=== PATIENT | female | born 1970 | race Caucasian/White ===

== ENCOUNTER 2018-12-14 07:51 | Observation (INO) | payer SELFPAY ==
--- NOTE | 2018-12-14 08:57 | CT ---
CT Brain WO Con: 12/14/2018 8:31 AM CLINICAL HISTORY: Headache, weakness of right upper extremity. COMPARISON: None. FINDINGS: Hemorrhage: None. Ventricular system: Normal in size and morphology for the patient's age. Cerebral parenchyma: Normal Midline shift: None. Mass: No mass effect. Calvarium: Normal. Visualized Paranasal sinuses: Clear. IMPRESSION: No acute intracranial abnormalities.
[2018-12-14 08:58] LABS: #Basophils 0.1 thou/uL (0.0-0.2); #Eosinphils 0.4 thou/uL (0.0-0.7); #Lymphocytes 2.3 thou/uL (1.20-3.40); #Monocytes 1.5 thou/uL (0.11-0.59); #Neutrophils 6.8 thou/uL (1.40-6.50); %Basophils 1.1 % (0.0-1.0); %Eosinophils 3.3 % (0.0-10.0); %Lymphocytes 20.6 % (21.0-51.0); %Monocytes 13.2 % (0.0-10.0); %Neutrophils 61.9 % (42.0-75.0); Hemoglobin 13.9 g/dL (12.0-16.0); Mean Corpuscular HGB CONC 32.1 g/dL (32.0-36.0); Mean Corpuscular Hemoglobin 28.5 pg (27.0-31.0); Mean Corpuscular Volume 88.9 fL (78.0-98.0); Mean Platelet Volume 7.9 fL (7.4-10.4); Platelet Count 272 thou/uL (130-400); RBC Distribution Width 13.2 % (11.5-14.5); Red Blood Cell (RBC) Count 4.88 mill/uL (4.20-5.40)
[2018-12-14 09:11] LABS: Amphetamine Not Detected (NotDetected); Barbiturates Screen Not Detected (NotDetected); Benzodiazepine Screen Not Detected (NotDetected); Cocaine Metabolite Screen Not Detected (NotDetected); Medtox Control Line Valid? VALID (VALID); Medtox Reader # READER 1; Methadone Not Detected (NotDetected); Methamphetamine Not Detected (NotDetected); Opiate Screen Not Detected (NotDetected); Oxycodone Screen Not Detected (NotDetected); Phencyclidine (PCP) Not Detected (NotDetected); THC/Cannabinoid Screen Not Detected (NotDetected); Tricyclic Screen Not Detected (NotDetected)
[2018-12-14 09:13] LABS: Acetaminophen Less than 6.0 mcg/mL (10.0-30.0); Alcohol Less than 10 mg/dL (Less than 10); Salicylate Less than 8.0 mg/dL (15.0-30.0)
[2018-12-14] MEDS ORDERED: Acetaminophen 500 MG TAB ONE (09:13)
[2018-12-14 09:14] LABS: ALT (SGPT) 34 U/L (8-55); AST (SGOT) 22 U/L (5-34); Alkaline Phosphatase 119 U/L (40-150); Anion Gap 11 mmol/L (10-20); BUN (Urea Nitrogen) 17 mg/dL (7.0-18.7); Bilirubin, Total 0.4 mg/dL (0.2-1.2); Calc. Creatinine Clearance 0 mL/min (70-130); Calcium 9.3 mg/dL (7.8-10.44); Carbon Dioxide 28 mmol/L (22-29); Chloride 105 mmol/L (98-107); Estimated GFR-MDRD 70; Globulin 3.3 g/dL (2.4-3.5); Glucose 95 mg/dL (70-105); Protein, Total 7.3 g/dL (6.0-8.3); Sodium 140 mmol/L (136-145)
--- NOTE | 2018-12-14 12:27 | PDOC.FPRHP ---
- History of Present Illness Chief Complaint: headache, tingling b/l feet History of Present Illness: This is a 48 yo F presenting to the ED for multiple complaints including headache, tingling b/l feet, and right sided weakness. The patient states that her feet feel like she is stepping on "pins and needles." She states that these symptoms started yesterday. She also states that they have been more swollen for about a week. She denies any recent trauma, injury, or travel. She denies ever having similar symptoms. She reports that the headache started around 10pm last night. Endorses lightheadedness since this morning as well. The patient denies any vision changes, hearing changes, NVD, slurred speech, chest pain, palpitations, fever, chills, or abdominal pain. The patient states that she is unable to walk due to the weakness on her right side. Of note, the patient was recently released from long term and has been staying at a [facility]. 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 From [place] - Review of Systems General: denies: fever/chills, weight/appetite/sleep changes, night sweats, fatigue Eyes: denies: eye pain, vision changes ENT: denies: nasal congestion, rhinorrhea Respiratory: denies: cough, congestion, shortness of breath Cardiovascular: denies: chest pain, palpitation, edema, paroxysmal nocturnal dyspnea Gastrointestinal: denies: nausea, vomiting, diarrhea, constipation, abdominal pain Genitourinary: denies: dysuria Skin: denies: rashes, lesions Musculoskeletal: reports: pain (bilateral feet), swelling Neurological: reports: numbness (right sided), weakness (right sided). denies: seizure - Vital signs BP: 123/84 HR: 87 RR: 18 Tmax: 98.6 Pox: 97% on RA Wt: 81.7kg - Physical Exam Constitutional: NAD, awake, alert and oriented, well developed HEENT: normocephalic and atraumatic, PERRLA, EOMI, no scleral icterus, grossly normal vision, grossly normal hearing, MMM Neck: supple, FROM, trachea midline Chest: no-tender to palpation, no lesions Heart: RRR, normal S1/S2, no murmurs/rubs/gallops, pulses present Lungs: CTAB, no respiratory distress, good air movement, no rales/rhonchi, no wheezing, no retractions Abdomen: soft, non-tender, bowel sounds present, no masses/distention Musculoskeletal: normal structure, normal tone Neurological: CN II-XII intact -Neurological: decreased right sided weakness - face, arm and leg; right sided weakness 0/5, left sided weakness 4/5 Skin: no rash/lesions, good turgor, capillary refill <2 seconds Psychiatric: normal mood and affect, good judgment and insight, intact recent and remote memory FMR H&P: Results - Labs Result Diagrams: 12/14/18 08:50 12/14/18 08:50 Lab results: WBC 11.0 thou/uL (4.8-10.8) H 12/14/18 08:50 Hgb 13.9 g/dL (12.0-16.0) 12/14/18 08:50 Hct 43.4 % (36.0-47.0) 12/14/18 08:50 MCV 88.9 fL (78.0-98.0) 12/14/18 08:50 Plt Count 272 thou/uL (130-400) 12/14/18 08:50 Neutrophils % 61.9 % (42.0-75.0) 12/14/18 08:50 Sodium 140 mmol/L (136-145) 12/14/18 08:50 Potassium 4.0 mmol/L (3.5-5.1) 12/14/18 08:50 Chloride 105 mmol/L (98-107) 12/14/18 08:50 Carbon Dioxide 28 mmol/L (22-29) 12/14/18 08:50 BUN 17 mg/dL (7.0-18.7) 12/14/18 08:50 Creatinine 0.87 mg/dL (0.6-1.1) 12/14/18 08:50 Glucose 95 mg/dL (70-105) 12/14/18 08:50 Calcium 9.3 mg/dL (7.8-10.44) 12/14/18 08:50 Total Bilirubin 0.4 mg/dL (0.2-1.2) 12/14/18 08:50 AST 22 U/L (5-34) 12/14/18 08:50 ALT 34 U/L (8-55) 12/14/18 08:50 Alkaline Phosphatase 119 U/L (40-150) 12/14/18 08:50 Serum Total Protein 7.3 g/dL (6.0-8.3) 12/14/18 08:50 Albumin 4.0 g/dL (3.5-5.0) 12/14/18 08:50 - Radiology Interpretation CT scan - head Status: report reviewed by me (no acute intracranial response) FMR H&P: A/P - Problem List (1) Neuropathy Current Visit: Yes Status: Acute Code(s): G62.9 - POLYNEUROPATHY, UNSPECIFIED (2) TIA (transient ischemic attack) Current Visit: Yes Status: Acute Code(s): G45.9 - TRANSIENT CEREBRAL ISCHEMIC ATTACK, UNSPECIFIED - Plan TIA vs stroke Patient with right sided weakness and neuropathy. CT brain normal. - Will order CTA head/neck - MRI pending - FSH, TSH, A1C pending - Can consider gabapentin for neuropathy like symptoms Leukocytosis - WBC 11 - Will monitor, patient afebrile, VSS Hx of drug abuse - pt denies current use - UDS neg Code: FULL GI ppx: none VTE ppx: lovenox DISPO: dc pending negative work up Case discussed with Dr. Cedillo FMR H&P: Upper Level - Pertinent history 48 yo female here for Headache starting yesterday. When she woke up this morning , she reports that she was having right sided weakness and numbness. Assoc difficulty walking due to right leg weakness, pins and needles in feet. No recent trauma or injury. Denies changes in vision, hearing, N/V/D, changes in speech. - Pertinent findings 145/88 HR: 78 SpO2: 100% on RA GEN: NAD, AAOx3 PULM: CTAB CARD: RRR, no m/g/r NEURO: decreased sensation on right face (upper and lower), UE and LE; 5/5 strength b/l on UE but decreased on right compared to left; pt unable to lift right leg Labs normal No acute intracranial abnormalities - Plan Date/Time: 12/14/18 1227 I, Robert Lopez DO, have evaluated this patient and agree with findings/plan as outlined by internal affairs investigator resident. Pertinent changes/additions are listed here. #neural deficits, TIA vs CVA vs complex migraines vs malingering -pt has odd acute history, nurses and other providers obtain a different history and physical exam -CT negative -CTA head/neck -will continue with workup including MRI, HA1c, lipids Addendum - Attending - Attending Attestation Date/Time: 12/14/18 1946 I personally evaluated the patient and discussed the management with Dr. Sterling. I agree with the History, Examination, Assessment and Plan documented above with any addition or exceptions noted below. The patient was seen this morning after coming to the er with a headache, feet tingling and right sided weakness. She states her headache began last night and she noticed right sided weakness this morning. She also complains of bilateral pins and needles sensation in her feet which make it difficult to walk. Nursing states pt has been able to get out of bed and walk to the restroom but pt has right sided weakness on exam. Will continue TIA/stroke workup with CTA, MRI brain, and additional labs. Pt is in agreement with this plan.
[2018-12-14] MEDS ORDERED: Ondansetron PF 4 MG/2 ML Vial IVP PRN (12:55)
[2018-12-14] MEDS ORDERED: Acetaminophen 650 MG Suppository PR PRN (12:55)
[2018-12-14] MEDS ORDERED: Ondansetron ODT 4 MG TAB PO PRN (12:55)
[2018-12-14 13:32] VITALS: BMI 29.7
--- NOTE | 2018-12-14 16:13 | MRI ---
MRI Brain WO Con: 12/14/2018 12:57 PM CLINICAL HISTORY: TIA. COMPARISON: Head CT, earlier same day FINDINGS: Extra axial spaces: Normal in size and morphology for the patient's age. Hemorrhage: None. Ventricular system: Normal in size and morphology for the patient's age. Basal cisterns: Normal. Cerebral parenchyma: Limited evaluation due to extensive patient motion. Underlying pathologic signal could be obscured. No acute territorial infarction. Midline shift: None. Cerebellum: Normal. Brainstem: Normal. Paranasal sinuses:Clear IMPRESSION:Limited exam due to patient motion. No definite acute infarction or mass effect.
--- NOTE | 2018-12-14 16:22 | CT ---
NONCONTRAST HEAD CT POST CONTRAST HEAD CT CT ANGIOGRAM OF THE HEAD AND NECK: 12/14/18 TECHNIQUE: Pre and postcontrast head CT is performed in the axial plane. CT angiogram of the head and neck are p erformed in the axial plane. Three dimensional reformatted images are submitted for interpretation. FINDINGS: NONCONTRAST HEAD CT: No hemorrhage, extra-axial hematoma or midline shift. Brain volume, age appropriate. No evidence of hydrocephalus. Intact calvarium. POSTCONTRAST HEAD CT: No pathologic enhancement of the brain parenchyma. The visualized orbits are unremarkable. Aerodigestive tract is patent. No mucosa abnormality. Midline fatty raphae of the tongue is preserved. Patient is edentulous. Epiglottis is normal caliber. Pre-ep iglottic fat is preserved. Symmetric attenuation of the parotid and submandibular glands. Symmetric attenuation of the sternocle idomastoid muscles. Nonspecific left soft tissue neck lymph nodes. Upper normal right level II lymph node measuring 0.9 x 1.5 cm. There is no prevertebral soft tissue swelling. No epidural hematoma. Cervical spine vertebral body he ight is maintained. No fracture. Moderate degenerative disc disease at C5-C6. Upper mediastinum demonstrates extensive enlarged prevascular, subcarinal and hilar lymph nodes, inco mpletely evaluated. CT ANGIOGRAM: Visualized aortic arch is unremarkable. RIGHT CAROTID: The right innominate artery has appropriate enhancement and luminal diameter. Right common carotid ar lui, carotid bifurcation and internal carotid artery have appropriate enhancement and luminal diamet er. There is mild tortuosity of the distal cervical internal carotid artery. LEFT CAROTID: The left carotid artery origin has appropriate enhancement and luminal diameter. Left common carotid artery, carotid bifurcation, and internal carotid artery have appropriate enhancement and luminal vipul meter. There is mild tortuosity of the distal cervical internal carotid artery. Both cervical vertebral arteries are patent throughout their course in the neck. Left vertebral arter y is slightly more dominant. Both subclavian arteries are unremarkable. CT ANGIOGRAM OF THE HEAD: There is symmetric enhancement and luminal diameter of the A1 and A2 segments. There is slight beaded appearance involving bilateral M1 segment. Proximal MCA branches are symmetric. POSTERIOR CIRCULATION: Both vertebral arteries supply a normal appearing basilar artery. Both P1 segments have appropriate e nhancement and luminal diameter. Limited evaluation of the PICA artery origins. IMPRESSION: 1. Beaded appearance involving both M1 segments. Correlate for fibromuscular dysplasia. 2. Extensive mediastinal lymphadenopathy, incompletely evaluated. Correlate clinically. Consider postcontrast chest, abdomen and pelvic CT if clinically warranted after thorough interrogation of th e patient's history. POS: [facility]
[2018-12-14] MEDS ORDERED: Iopamidol 370 76% 100 ML VIAL ONE (16:53)
[2018-12-14] MEDS: Acetaminophen 325 MG TAB PO PRN ×2 (17:29→21:53)
[2018-12-15 05:20] LABS: #Basophils 0.1 thou/uL (0.0-0.2); #Eosinphils 0.6 thou/uL (0.0-0.7); #Lymphocytes 1.9 thou/uL (1.20-3.40); #Monocytes 1.1 thou/uL (0.11-0.59); #Neutrophils 4.8 thou/uL (1.40-6.50); %Basophils 0.7 % (0.0-1.0); %Eosinophils 6.8 % (0.0-10.0); %Neutrophils 56.6 % (42.0-75.0); Hemoglobin 13.9 g/dL (12.0-16.0); Mean Corpuscular HGB CONC 31.8 g/dL (32.0-36.0); Mean Corpuscular Hemoglobin 28.5 pg (27.0-31.0); Mean Corpuscular Volume 89.6 fL (78.0-98.0); Mean Platelet Volume 8.4 fL (7.4-10.4); Platelet Count 261 thou/uL (130-400); RBC Distribution Width 13.2 % (11.5-14.5); Red Blood Cell (RBC) Count 4.89 mill/uL (4.20-5.40); White Blood Cell (WBC) Count 8.4 thou/uL (4.8-10.8)
[2018-12-15 05:39] LABS: Anion Gap 10 mmol/L (10-20); BUN (Urea Nitrogen) 14 mg/dL (7.0-18.7); Calc. Creatinine Clearance 121 mL/min (70-130); Calcium 9.4 mg/dL (7.8-10.44); Carbon Dioxide 27 mmol/L (22-29); Cardiac Risk 4.1 (Less than 4.5); Chloride 106 mmol/L (98-107); Cholesterol 233 mg/dl (< 200 Desired); Estimated GFR-MDRD 80; Glucose 93 mg/dL (70-105); HDL Cholesterol 57 mg/dL (>60 Neg Risk); LDL Cholesterol, Calculated 156 mg/dL; Potassium 4.9 mmol/L (3.5-5.1); Sodium 138 mmol/L (136-145); Triglycerides 99 mg/dL (Less than 150)
--- NOTE | 2018-12-15 07:05 | PDOC.FM ---
- Subjective Subjective: NAEO. Patient resting comfortably in bed. States right sided weakness has improved, arm > leg. She states she is still having difficulty walking due to right leg weakness but was able to ambulate to the bathroom with assistance. She endorses persistent headache that is somewhat relieved with medication. SHe was able to sleep most of the night. She states PT did not come by yesterday. Denies fever, chills, NVD, chest pain, or palpitations. - Objective Vital Signs & Weight: Vital Signs (12 hours) Temp Pulse Resp BP BP Pulse Ox 12/15/18 03:54 98.0 F 63 14 126/72 97 12/14/18 23:09 98.1 F 63 12 128/68 93 L Weight Weight 84.731 kg I&O: 12/14/18 12/15/18 12/16/18 06:59 06:59 06:59 Output Total 400 Balance -400 Result Diagrams: 12/15/18 05:02 12/15/18 05:02 Phys Exam - Physical Examination Constitutional: NAD HEENT: PERRLA, moist MMs, sclera anicteric Neck: full ROM Respiratory: no wheezing, no rales, no rhonchi, clear to auscultation bilateral Cardiovascular: RRR Gastrointestinal: soft, non-tender, no distention, positive bowel sounds Musculoskeletal: no edema Neurological: moves all 4 limbs 2/5 weakness on RLE, sensation decreased on right side face, arm, leg Psychiatric: normal affect, A&O x 3 Skin: no rash, normal turgor, cap refill <2 seconds Dx/Plan (1) Neuropathy Code(s): G62.9 - POLYNEUROPATHY, UNSPECIFIED Status: Acute (2) TIA (transient ischemic attack) Code(s): G45.9 - TRANSIENT CEREBRAL ISCHEMIC ATTACK, UNSPECIFIED Status: Acute (3) Migraine Code(s): G43.909 - MIGRAINE, UNSP, NOT INTRACTABLE, WITHOUT STATUS MIGRAINOSUS Status: Acute - Plan Plan: TIA vs complex migraine Patient with right sided weakness and neuropathy. CT brain normal. Patient states she has been under a lot of stress due to social issues. - CTA head/neck: beaded appearance in M1 segment, possible fibromuscular dysplasia, mediastinal lymphadenopathy; recommend following up outpatient with PCP - MRI: no mass effect, limited due to movement - FLP wnl, A1C wnl, B12/folate nml - Will start gabapentin for neuropathy like symptoms Leukocytosis - WBC 11 - Will monitor, patient afebrile, VSS Hx of drug abuse - pt denies current use - UDS neg Code: FULL GI ppx: none VTE ppx: lovenox DISPO: likely dc later today Addendum - Attending - Attending Attestation Date/Time: 12/15/18 [id number] I personally evaluated the patient and discussed the management with Dr. Sterling I agree with the History, Examination, Assessment and Plan documented above with any addition or exceptions noted below. Beaded vascular appearance and adenopathy noted. Concern Fibromuscular dysplasia and risk anuersyms. Patient denies fever ,chills weight loss, endorsing weight gain. No cervical, supraclavicular, axillary or inguinal adenopathy appreciated. Neuro exam no weakness demonstrated however patient with endorsement of ambulating difficulties. Procced with further generalized imaging for adenopathy and vascular study CTA . Encourage continued observation with increased activity.
[2018-12-15 07:13] LABS: Hemoglobin A1c 4.7 % (4.0-6.0)
[2018-12-15] MEDS: Gabapentin 100 MG CAP PO SCH (09:06)
[2018-12-15] MEDS: Acetaminophen 325 MG TAB PO PRN (09:06)
[2018-12-15] MEDS: Enoxaparin Sodium 40 MG/0.4 ML SYRINGE SC SCH (09:07)
--- NOTE | 2018-12-15 13:26 | CT ---
EXAM: CT Chest Abd Pelvis W Con PROVIDED CLINICAL HISTORY: Mediastinal lymphadenopathy COMPARISON: None FINDINGS: There are multiple enlarged mediastinal and hilar lymph nodes. Pretracheal lymph node image 17 series 2 measures about 1.9 cm in short axis. Right hilar lymph node measures about 2.2 cm in short axis (i mage 29 series 2). Enlarged paraesophageal lymph nodes are also seen just cranial to the diaphragmati c hiatus. No evidence for axillary lymph node enlargement. The heart, pericardium and great vessels appear unremarkable. The airway appears patent and of normal caliber. Nonspecific sub-4 mm nodular densities involving right lower lobe. No pleural fluid or pneu mothorax apparent. The liver, spleen, pancreas, kidneys and adrenal glands demonstrate an unremarkable CT appearance. No bowel dilatation, inflammatory fat stranding, free fluid or abdominal lymph node enlargement. 3.7 cm cystic lesion right hemipelvis probably adnexal in origin. The uterus is not visualized and pr esumed surgically absent. The osseous structures demonstrate no concerning osteoblastic or osteolytic lesions. IMPRESSION: 1. Bulky mediastinal and hilar lymph node enlargement. Neoplastic and granulomatous etiologies should be considered. No evidence for lymphadenopathy below the diaphragm. 2. 3.7 cm right adnexal cystic structure, nonspecific. Correlation with pelvic ultrasound recommended .
[2018-12-15] MEDS ORDERED: Iopamidol 370 76% 100 ML VIAL ONE (13:43)
[2018-12-16] MEDS: Acetaminophen 325 MG TAB PO PRN ×3 (00:50→11:24)
[2018-12-16] MEDS ORDERED: Cyclobenzaprine 10 MG TAB PO SCH (05:00)
--- NOTE | 2018-12-16 06:42 | PDOC.FM ---
- Subjective Subjective: Overnight, the patient complained of cramping in her bilateral legs, mostly in the thighs. SHe states this is due to her restless leg syndrome. States her right sided weakness is improving. Patient has been tolerating PO, ambulating. She denies any fever, chills, chest pain, palpitations, endorses headache that improves some w/ tylenol. - Objective Vital Signs & Weight: Vital Signs (12 hours) Temp Pulse Resp BP BP Pulse Ox 12/16/18 04:45 98.5 F 71 20 109/68 97 12/15/18 19:03 98.6 F 67 12 162/98 H 97 Weight Weight 86.772 kg I&O: 12/14/18 12/15/18 12/16/18 06:59 06:59 06:59 Output Total 400 Balance -400 Result Diagrams: 12/15/18 05:02 12/15/18 05:02 Phys Exam - Physical Examination mild distress due to leg cramping HEENT: PERRLA, moist MMs, sclera anicteric Neck: full ROM Respiratory: clear to auscultation bilateral Cardiovascular: RRR Gastrointestinal: soft, non-tender, no distention, positive bowel sounds Neurological: moves all 4 limbs weakness 4/5 in RLE Psychiatric: normal affect, A&O x 3 Skin: no rash, normal turgor, cap refill <2 seconds Dx/Plan (1) Neuropathy Code(s): G62.9 - POLYNEUROPATHY, UNSPECIFIED Status: Acute (2) TIA (transient ischemic attack) Code(s): G45.9 - TRANSIENT CEREBRAL ISCHEMIC ATTACK, UNSPECIFIED Status: Acute (3) Migraine Code(s): G43.909 - MIGRAINE, UNSP, NOT INTRACTABLE, WITHOUT STATUS MIGRAINOSUS Status: Acute (4) Restless leg syndrome Status: Acute - Plan Plan: TIA vs complex migraine Patient with right sided weakness and neuropathy. CT brain normal. Patient states she has been under a lot of stress due to social issues. Patient symptoms have improved over the course of her stay. - CTA head/neck: beaded appearance in M1 segment, possible fibromuscular dysplasia, mediastinal lymphadenopathy - MRI: no mass effect, limited due to movement - FLP wnl, A1C wnl, B12/folate nml - Will start gabapentin for neuropathy like symptoms - PT/OT Mediastinal Lymphadenopathy - incidental finding on CTA head/neck - CT chest showing bulky mediastinal and lymphadenopathy - Will consult pulm for recommendations Leukocytosis, resolved - WBC 11 - Will monitor, patient afebrile, VSS Restless Leg Syndrome - pt given flexeril overnight which helped some with the cramping - Will start patient on ropinerol for RLS and monitor symptoms Hx of drug abuse - pt denies current use - UDS neg Code: FULL GI ppx: none VTE ppx: lovenox DISPO: dc pending biopsy of adenopathy Addendum - Attending - Attending Attestation Date/Time: 12/16/18 7638 I personally evaluated the patient and discussed the management with Dr. Sterling I agree with the History, Examination, Assessment and Plan documented above with any addition or exceptions noted below. Continued inpatient evaluation of asymptomatic lymphadenopathy questionable consider infectious etiology verse sarcoidosis. Pulmonary consulted for any further inpt evaluation otherwise patient approaching discharge. Long standing RLS RX started.
[2018-12-16] MEDS: Gabapentin 100 MG CAP PO SCH (08:21)
[2018-12-16] MEDS: Enoxaparin Sodium 40 MG/0.4 ML SYRINGE SC SCH (08:21)
--- NOTE | 2018-12-16 10:47 | ULT ---
US Pelvic Transvag W Doppler History: [Mediastinal lymphadenopathy] Comparison: CT prior day Findings: Real-time grayscale, color, and spectral analysis of the pelvis was performed. Patient states she had a total hysterectomy. There is a 2.2 cm cyst right adnexa. No solid mass. Ovaries and uterus are absent. Impression: 2.2 cm cyst right adnexa without any internal blood flow may reflect a peritoneal inclusi on cyst from prior surgery.
[2018-12-16 13:51] LABS: HIV (1/2) Antibody/Antigen Non-Reactive (NonReactive); HIV 1/2 INDEX 0.12 S/CO (<1.00)
[2018-12-16 16:12] LABS: Hematocrit 41.9 % (34.0-46.6); RBC Folate Test Component 811 ng/mL (>498)
[2018-12-16 16:25] VITALS: BP 143/80; TEMP 97.9
[2018-12-16] MEDS ORDERED: rOPINIRole HCl 0.25 MG TAB PO SCH (21:00)
--- NOTE | 2018-12-17 02:54 | DIS ---
DATE OF ADMISSION: 12/14/2018 DATE OF DISCHARGE: 12/16/2018 RESIDENT: Argenis Sterling MD. ADMITTING ATTENDING: Татьяна Cedillo MD. DISCHARGE ATTENDING: Naveen Garcia MD. CONSULTS: Case Management, PT/OT, and Pulmonology. PROCEDURES: None. PRIMARY DIAGNOSES: 1. Complex migraine. 2. Leukocytosis. 3. Mediastinal lymphadenopathy. SECONDARY DIAGNOSES: 1. History of drug abuse. 2. Restless legs syndrome. DISCHARGE MEDICATIONS: 1. Tylenol 650 mg oral every 4 hours as needed. 2. Neurontin 100 mg oral daily. 3. Ropinirole 0.25 mg oral every evening. DISCONTINUED MEDICATIONS: None. HISTORY OF PRESENT ILLNESS/HOSPITAL COURSE: This is a 48-year-old female who is presenting to the ED for multiple complaints including headache, tingling of the bilateral feet, and right-sided weakness. The patient states that her feet felt like she was stepping on pins and needles. The patient stated her symptoms had started the day prior. The patient also stated that she has been having swollen feet for about a week. The patient denies any recent trauma, injury, or travel. She has never had similar symptoms. The patient reports that the headache started the night prior and has been constant. She endorsed lightheadedness as well. The patient denies any vision changes, hearing changes, nausea, vomiting, diarrhea, slurred speech, chest pain, fever, or chills. The patient stated that she was unable to walk due to weakness on her right side. Of note, [facility]. In the ED, the patient was given Tylenol for her symptoms. A CT of the brain was performed that showed no acute intracranial process. The patient had a CTA of the head and neck performed that showed a beaded appearance involving both M1 segments correlating to possible fibromuscular dysplasia. The image also had an incidental finding of extensive mediastinal lymphadenopathy. This imaging was followed up by a CT of the chest, abdomen, and pelvis. The CT showed bulky mediastinal and hilar lymph node enlargement, possible etiologies being neoplastic or granulomatous. The patient had no symptoms of respiratory distress throughout her stay. No weight loss, fevers, chills, or night sweats. Because of the mediastinal lymphadenopathy, Pulmonology was consulted. They recommended follow up outpatient on these findings. The CT also showed a adnexal cystic structure that was nonspecific. A pelvic ultrasound was performed that showed a 2.2 cm right cyst in the adnexa without any internal blood flow that may reflect a peritoneal inclusion cyst. The patient's right-sided weakness improved throughout her hospital stay. The patient was started on gabapentin for her neuropathy like symptoms with mild improvement. The patient was also started on ropinirole for her restless legs syndrome. The patient remained vitally stable throughout her hospital course. The patient is originally from the [facility] and will be traveling back there soon and can follow up with her PCP there. DISPOSITION: Stable. DISCHARGE INSTRUCTIONS: 1. Location: [place]. 2. Diet: Regular. 3. Activity: Ad césar. 4. Followup: Follow up with PCP within 1 to 3 weeks. Job ID: [id number] [facility]
== END 2018-12-16 19:33 | disposition home or self-care (01) ==
LOC: ERS 07:51 → 2SW 10:21 → ERHOLD 10:22 → 2SW 13:14
PROVIDERS: ADMIT Family Medicine; ATTEND Family Medicine
DX: G43.809 Other migraine, not intractable, without status migrainosus (principal); D72.829 Elevated white blood cell count, unspecified; R59.0 Localized enlarged lymph nodes; G25.81 Restless legs syndrome; F19.11 Other psychoactive substance abuse, in remission
CPT/HCPCS: 36415; 70450; 70496; 70498; 70551; 71260; 74177; 76856; 80048; 80053; 80061; 80306; 80307; 82607; 82747; 83036; 85025; 87389; 96372; G0378; J1650; Q9967

== ENCOUNTER 2018-12-20 20:14 | Emergency (ER) | payer SELFPAY ==
[2018-12-20 20:38] LABS: #Basophils 0.1 thou/uL (0.0-0.2); #Eosinphils 0.4 thou/uL (0.0-0.7); #Lymphocytes 3.1 thou/uL (1.20-3.40); #Monocytes 1.3 thou/uL (0.11-0.59); #Neutrophils 6.3 thou/uL (1.40-6.50); %Eosinophils 3.8 % (0.0-10.0); %Lymphocytes 27.8 % (21.0-51.0); %Monocytes 11.2 % (0.0-10.0); Hemoglobin 13.2 g/dL (12.0-16.0); Mean Corpuscular Volume 87.8 fL (78.0-98.0); Mean Platelet Volume 7.9 fL (7.4-10.4); Platelet Count 315 thou/uL (130-400); RBC Distribution Width 12.8 % (11.5-14.5); Red Blood Cell (RBC) Count 4.56 mill/uL (4.20-5.40); White Blood Cell (WBC) Count 11.2 thou/uL (4.8-10.8)
[2018-12-20 21:01] LABS: ALT (SGPT) 16 U/L (8-55); AST (SGOT) 13 U/L (5-34); Albumin 4.1 g/dL (3.5-5.0); Alkaline Phosphatase 110 U/L (40-150); Anion Gap 10 mmol/L (10-20); BUN (Urea Nitrogen) 16 mg/dL (7.0-18.7); Bilirubin, Total 0.2 mg/dL (0.2-1.2); CK (CPK) 61 U/L (29-168); Calc. Creatinine Clearance 0 mL/min (70-130); Calcium 9.6 mg/dL (7.8-10.44); Carbon Dioxide 29 mmol/L (22-29); Chloride 102 mmol/L (98-107); Estimated GFR-MDRD 73; Globulin 3.3 g/dL (2.4-3.5); Glucose 98 mg/dL (70-105); Potassium 4.4 mmol/L (3.5-5.1); Protein, Total 7.4 g/dL (6.0-8.3); Sodium 137 mmol/L (136-145)
--- NOTE | 2018-12-20 21:48 | RAD ---
Exam: Chest one view portable: HISTORY: Headache and bilateral lower extremity swelling COMPARISON: Chest CT scan, 12/15/2018 FINDINGS: Again noted is extensive bilateral hilar as well as mediastinal adenopathy. Heart size is normal. No acute intrathoracic disease. IMPRESSION: Stable hilar and mediastinal adenopathy. No new process.
[2018-12-20] MEDS ORDERED: diphenhydrAMINE 25 MG CAP ONE (22:11)
== END 2018-12-20 22:46 ==
LOC: ERS 20:14
DX: L25.9 Unspecified contact dermatitis, unspecified cause (principal); R07.9 Chest pain, unspecified; M79.89 Other specified soft tissue disorders; Z79.899 Other long term (current) drug therapy
CPT/HCPCS: 36415; 71045; 80053; 82550; 83880; 84484; 85025; 93005; 94760; Q0163